=== PATIENT | female | born 1990 | race Hispanic/Latino ===

== ENCOUNTER 2021-10-08 16:21 | Inpatient (IN) | payer SELFPAY ==
[~2021-10-08] VITALS: Ht 152.4 cm; Wt 94.8 kg
[2021-10-08] MEDS ORDERED: IBUPROFEN 600 MG TAB PO STA (17:00)
[2021-10-08] MEDS ORDERED: SODIUM CHLORIDE 0.9% 1000ML 1,000 ML IV SCH ×2 (17:00→18:00)
[2021-10-08] MEDS ORDERED: ACETAMINOPHEN 325 MG TAB PO ONE (17:00)
[2021-10-08] MEDS ORDERED: SODIUM CHLORIDE 0.9% 1000ML 1,000 ML ONE ×2 (17:12→19:14)
[2021-10-08] MEDS ORDERED: ZYRTEC10 M3 (17:23)
[2021-10-08] MEDS ORDERED: LEVOFLOXACIN 750MG/D5W 150ML 150 ML IV ONE (18:00)
[2021-10-08] MEDS ORDERED: ONDANSETRON HCL INJ 2MG/ML 2ML 2 MG/ML VIAL IV PRN (20:15)
[2021-10-08] MEDS ORDERED: SODIUM CHLORIDE FLUSH 10 ML SYR INJ PRN (20:15)
[2021-10-08] MEDS ORDERED: ACETAMINOPHEN 325 MG TAB PO PRN (20:15)
[2021-10-08 21:15] VITALS: BP 122/53
[2021-10-08 21:40] VITALS: BP 122/53
[2021-10-09] VITALS (8 sets, daily range): BP systolic 107–130; BP diastolic 55–75
[2021-10-09 06:44] LABS: LIPASE 6 U/L (8-78)
[2021-10-09 06:51] LABS: BASOPHILS # (AUTO) 0.1 (0.0-0.1); BASOPHILS % 0.3 % (0.0-1.0); EOSINOPHILS % 0.3 % (0.0-6.0); HEMATOCRIT 35.4 % (34.2-44.1); HEMOGLOBIN 11.8 g/dL (12.0-16.0); LYMPHOCYTES # (AUTO) 1.9 (1.0-3.2); LYMPHOCYTES % 12.9 % (18.0-39.1); MEAN CORPUSCULAR HEMOGLOBIN 30.1 pg (28-32); MEAN CORPUSCULAR HGB CONC 33.3 g/dL (31-35); MEAN CORPUSCULAR VOLUME 90.3 fL (81-99); MONOCYTES # (AUTO) 1.2 (0.2-0.8); MONOCYTES % 8.2 % (4.4-11.3); NEUTROPHILS # (AUTO) 11.6 (2.1-6.9); PLATELET COUNT 298 x10e3/uL (140-360); RED BLOOD COUNT 3.92 x10e6/uL (3.6-5.1); RED CELL DISTRIBUTION WIDTH 12.9 % (11.7-14.4)
[2021-10-09 07:06] LABS: THYROID STIMULATING HORMONE 2.301 uIU/mL (0.350-4.940)
[2021-10-09 07:17] LABS: ALBUMIN 3.2 g/dL (3.5-5.0); ALBUMIN/GLOBULIN RATIO 0.8 (0.8-2.0); ANION GAP 11.8 mmol/L (8-16); CALCIUM 7.9 mg/dL (8.4-10.2); CREATININE, SERUM 0.74 mg/dL (0.57-1.11); POTASSIUM 3.8 mmol/L (3.5-5.1)
[2021-10-09] MEDS ORDERED: IOPAMIDOL 370 MG/ML 100 ML INFUS..BTL INJ ONE (08:38)
[2021-10-09] MEDS: ACETAMINOPHEN 325 MG TAB PO PRN ×3 (09:50→17:40)
[2021-10-09] MEDS ORDERED: KETOROLAC TROMETHAMINE 30 MG/ML VIAL IM PRN (10:15)
[2021-10-09] MEDS: SODIUM CHLORIDE 0.9% 1000ML 1,000 ML IV SCH (11:09)
[2021-10-09] MEDS ORDERED: Clindamycin INJ 300 MG/50 ML 50 ML IV SCH (12:00)
[2021-10-09] MEDS ORDERED: Clindamycin INJ 150 MG/ML 600 MG Vial IV SCH (13:30)
[2021-10-09] MEDS ORDERED: Clindamycin INJ 600 MG 600 MG in DEXTROSE 5% 50ML 50 ML IV SCH (18:00)
[2021-10-09] MEDS: LACTOBACILLUS ACIDOPHILUS CAPSULE PO SCH (19:40)
[2021-10-09] MEDS: AMOXICILLIN/CLAVULANATE K 875 MG TAB PO SCH (21:00)
[2021-10-10] VITALS: BP 118/68
[2021-10-10 04:00] VITALS: BP 113/60
[2021-10-10 06:56] LABS: BASOPHILS # (AUTO) 0.1 (0.0-0.1); BASOPHILS % 0.4 % (0.0-1.0); EOSINOPHILS # (AUTO) 0.1 (0.0-0.4); EOSINOPHILS % 1.1 % (0.0-6.0); HEMATOCRIT 35.1 % (34.2-44.1); HEMOGLOBIN 11.9 g/dL (12.0-16.0); LYMPHOCYTES # (AUTO) 2.3 (1.0-3.2); LYMPHOCYTES % 18.7 % (18.0-39.1); MEAN CORPUSCULAR HEMOGLOBIN 31.2 pg (28-32); MEAN CORPUSCULAR HGB CONC 33.9 g/dL (31-35); MEAN CORPUSCULAR VOLUME 91.9 fL (81-99); MONOCYTES % 8.4 % (4.4-11.3); NEUTROPHILS # (AUTO) 8.6 (2.1-6.9); NEUTROPHILS % 70.8 % (38.7-80.0); PLATELET COUNT 282 x10e3/uL (140-360); RED BLOOD COUNT 3.82 x10e6/uL (3.6-5.1); RED CELL DISTRIBUTION WIDTH 13.1 % (11.7-14.4)
[2021-10-10 08:00] VITALS: BP 113/60
[2021-10-10 08:01] VITALS: BP 123/57
[2021-10-10] MEDS: LACTOBACILLUS ACIDOPHILUS CAPSULE PO SCH (09:00)
[2021-10-10] MEDS: AMOXICILLIN/CLAVULANATE K 875 MG TAB PO SCH (09:00)
[2021-10-10] MEDS: SODIUM CHLORIDE 0.9% 1000ML 1,000 ML IV SCH (09:17)
[2021-10-10] MEDS ORDERED: Amoxicillin/Clavulanate K PO (10:55)
[2021-10-10 11:55] VITALS: BP 119/63
== END 2021-10-10 13:27 | disposition home or self-care (01) | DRG 153 ==
LOC: FSED 16:37 → ERHOLD 20:14 → MED/SURG2 21:36 → OBSVTOIN 10-09 12:05
PROVIDERS: ADMIT Internal Medicine; ATTEND Internal Medicine
DX: J03.90 Acute tonsillitis, unspecified (principal); R03.0 Elevated blood-pressure reading, without diagnosis of hypertension; Z20.822 Contact with and (suspected) exposure to COVID-19; J30.2 Other seasonal allergic rhinitis
CPT/HCPCS: 36415; 70490; 71046; 74178; 80053; 81003; 81025; 83518; 83605; 83690; 84443; 84484; 84702; 85025; 87040; 87400; 93005; 99284; G0378; J7030; Q9967; U0002